=== PATIENT | female | born 1965 | race Caucasian/White ===

== ENCOUNTER 2017-01-19 15:42 | Outpatient (CLI) | payer OTHER ==
--- NOTE | 2017-01-19 16:12 | DIAGNOSTIC IMAGING REPORT ---
PROCEDURE: XR CERVICAL SPINE 4 OR 5 VIEW INDICATION: RADICULOPATHY TECHNIQUE: Five views. COMPARISON: Cervical spine x-ray 08/01/2010. FINDINGS: Progression of mild degenerative changes from C4-5 to C6-7. 1.5 mm C4-5 anterolisthesis. Moderate bilateral C5-6 foraminal stenosis. Lower left foramina not well visualized due to positioning. Odontoid, lateral masses of C1 and prevertebral soft tissues are normal. IMPRESSION: 1. Progression of mild degenerative changes with moderate bilateral C5-6 foraminal stenosis 2. 1.5 mm C4-5 anterolisthesis
== END 2017-01-19 23:00 | disposition home or self-care (01) ==
LOC: XR SRH 15:42
DX: M54.12 Radiculopathy, cervical region (principal); M47.812 Spondylosis without myelopathy or radiculopathy, cervical region

== ENCOUNTER 2017-01-31 14:43 | Outpatient (CLI) | payer OTHER ==
--- NOTE | 2017-01-31 17:50 | DIAGNOSTIC IMAGING REPORT ---
PROCEDURE: MR CERVICAL SPINE W/O CONT INDICATION: CERVICAL RADICULOPATHY TECHNIQUE: Noncontrast T1, T2, and STIR sagittal images. T2 and gradient axial images. COMPARISON: Cervical spine x-ray 01/19/2017. FINDINGS: Normal alignment with mild degenerative changes. No fracture. Straightening of the cervical spine. Mild narrowing of the C5-6 disc space. Craniocervical junction and cord are normal. Paraspinal soft tissues are unremarkable. C2-3: Mild central disc herniation but no foraminal or spinal stenosis. C3-4: Normal appearance. C4-5: Small left posterior disc bulge and mild facet arthropathy. No foraminal or spinal stenosis. C5-6: Moderate right posterior disc protrusion superimposed on a mild broad-based disc bulge with facet arthropathy. There is mild to moderate right foraminal stenosis. There is mild spinal stenosis. C6-7: Moderate left paracentral disc bulge and facet arthropathy with mild bilateral of foraminal stenosis. Mild spinal stenosis. C7-T1: Normal appearance. IMPRESSION: 1. Mild degenerative changes with multilevel disc bulges 2. Loss of lordosis suggestive of muscular spasm 3 C5-6 moderate right posterior disc protrusion with mild to moderate right foraminal stenosis and mild spinal stenosis 4. C6-7 disc bulge with mild bilateral foraminal and spinal stenosis
== END 2017-01-31 23:00 | disposition home or self-care (01) ==
LOC: MRI SRH 14:43
DX: M50.222 Other cervical disc displacement at C5-C6 level (principal); M48.02 Spinal stenosis, cervical region; M40.50 Lordosis, unspecified, site unspecified